=== PATIENT | female | born 1955 | race Caucasian/White ===

== ENCOUNTER 2022-11-06 13:26 | Emergency (ER) | payer OTHER, MEDICAID ==
[~2022-11-06] VITALS: Ht 154.9 cm; Wt 85.0 kg
[2022-11-06 14:42] LABS: HEMATOCRIT 37.5 % (36.0-48.0); HEMOGLOBIN 12.5 g/dL (12.0-16.0); MEAN CORPUSCULAR VOLUME 86.8 fL (81.0-99.0); PLATELET 261 x1000/uL (130-400); RED BLOOD CELL COUNT 4.32 mill/uL (4.2-5.4); RED CELL DISTRIBUTION WIDTH 14.8 % (11.6-14.6)
[2022-11-06 14:48] LABS: CHLORIDE 109 mEq/L (98-107)
[2022-11-06 16:02] LABS: CLARITY URINE TURBID (CLEAR); COLOR URINE YELLOW (YELLOW); KETONES URINE NEGATIVE (NEGATIVE); LEUKOCYTE ESTERASE URINE 2+ (NEGATIVE); NITRITE URINE POSITIVE (NEGATIVE); OCCULT BLOOD URINE 3+ (NEGATIVE); PH URINE 6.5 (4.5-8.0); PROTEIN URINE 3+ (NEGATIVE); SPECIFIC GRAVITY URINE 1.025 (1.005-1.030)
[2022-11-06] MEDS ORDERED: CEPHALEXIN 250MG CAPSULE PO NR (17:00)
[2022-11-06 19:59] VITALS: BP 137/63
== END 2022-11-06 20:08 | disposition home or self-care (01) ==
LOC: ER 15:04
DX: N39.0 Urinary tract infection, site not specified (principal); K62.5 Hemorrhage of anus and rectum; M79.641 Pain in right hand; I50.9 Heart failure, unspecified; E11.9 Type 2 diabetes mellitus without complications
CPT/HCPCS: 36415; 73130; 80053; 81003; 85027; 99284